=== PATIENT | female | born 1960 | race Caucasian/White ===

== ENCOUNTER 2022-03-31 11:55 | Observation (INO) | payer OTHER ==
[~2022-03-31] VITALS: Ht 172.7 cm; Wt 100.0 kg
[2022-03-31] MEDS ORDERED: WELLBUTRIN100 M2 PO (12:09)
--- NOTE | 2022-03-31 12:10 | NUR ---
PATIENT AMBULATED TO ROOM WITH STEADY GAIT AND PHYSICIAN NOTIFIED OF STATUS
[2022-03-31 12:33] LABS: BASO% 0.6 % (0-3); EOS% 1.5 % (0-8); HEMATOCRIT 40.4 % (37.0-47.0); HEMOGLOBIN 12.6 g/dl (12.0-16.0); IMMATURE GRANULOCYTES 0.2 % (0.0-5.0); LYMPH% 23.8 % (15-41); MEAN CORPUSCULAR HGB 27.8 pG CALC (26.0-32.0); MEAN CORPUSCULAR HGB CONC 31.2 g/dL CAL (32.0-36.0); MONO% 10.2 % (2-13); NEUT# 3.93 thou/uL (2.00-7.15); NEUT% 63.7 % (42-76); RED BLOOD COUNT 4.54 mill/uL (4.20-5.60); RED CELL DISTRI WIDTH 13.7 % (11.5-15.5)
[2022-03-31 12:51] LABS: ALBUMIN 4.4 g/dL (3.2-5.0); ALKALINE PHOSPHATASE 57 u/l (38-126); ANION GAP 8 (6-22 (CALC)); BILIRUBIN, TOTAL 0.3 mg/dL (0.02-1.3); BUN 13 mg/dL (8-23); BUN/CREATININE RATIO 16 (12-20 (CALC)); CARBON DIOXIDE 30 mmol/l (22-30); CHLORIDE 104 mmol/l (95-108); CREATININE 0.8 mg/dL (0.5-1.0); GFR FOR AFR.AMER. > 60 ML/MIN (>=60 (CALC)); GFR OTHER RACES > 60 ML/MIN (>=60 (CALC)); POTASSIUM 4.2 mmol/l (3.5-5.1); SGOT/AST 25 u/l (9-36); SODIUM 138 mmol/l (137-146); TOTAL PROTEIN 7.4 g/dL (6.3-8.2)
--- NOTE | 2022-03-31 15:42 | NUR ---
RECEIVE PATIENT FROM ER. REPORT FROM [facility] ER NURSE. PATIENT ALERT AND ORENTED X3. ASSESSMENT HEAD-TO TOE COMPLETE. PT STABLE AT THIS TIME. SHE DOES NOT REFER TO PAIN OR STRESS IS OBSERVED AT THE TIME OF THIS NOTE. PATIENT IS EDUCATED ABOUT ADMISSION, MEDICATIONS AND NURSING PLAN. PATIENT REFERS TO UNDERSTAND. SAFETY AND FALL PRECAUTIONS IN PLACE. CALL LIGHT WITHIN REACH.
[2022-03-31 15:49] VITALS: BP 138/75
[2022-03-31] MEDS ORDERED: BUPROPION100 MG PO (16:09)
[2022-03-31 18:54] VITALS: BP 124/65
--- NOTE | 2022-03-31 19:25 | NUR ---
RECEIVED REPORT FROM [facility] NURSE. PT NOTED SITTING UP IN CHAIR. A/OX3. TELE MONITOR IN PLACE. PT DENIES ANY CHEST PAIN AT THIS TIME. CALL LIGHT WITHIN REACH AND SAFETY PRECAUTIONS IN PLACE.
--- NOTE | 2022-04-01 00:10 | NUR ---
PT LAYING IN BED SUPINE SLEEPING. TELE MONITOR IN PLACE. NO S/S OF DISTRESS. CALL LIGHT WITHIN REACH AND SAFETY PRECAUTIONS IN PLACE.
[2022-04-01 00:17] VITALS: BP 102/47
--- NOTE | 2022-04-01 04:00 | NUR ---
PT LAYING IN BED, AUTO DAMAGE ESTIMATOR GETTING VITALS AT THIS TIME. PT DENIES ANY PAIN. TELE MONITOR IN PLACE. CALL LIGHT WITHIN REACH AND SAFETY PRECAUTIONS INPLACE.
[2022-04-01 04:11] VITALS: BP 113/51
[2022-04-01 05:55] LABS: BASO% 0.8 % (0-3); EOS% 2.4 % (0-8); HEMATOCRIT 38.9 % (37.0-47.0); HEMOGLOBIN 11.9 g/dl (12.0-16.0); IMMATURE GRANULOCYTES 0.6 % (0.0-5.0); LYMPH% 33.6 % (15-41); MEAN CELL VOLUME 89.2 fL CALC (80.0-100.0); MEAN CORPUSCULAR HGB 27.3 pG CALC (26.0-32.0); MEAN CORPUSCULAR HGB CONC 30.6 g/dL CAL (32.0-36.0); MONO% 11.1 % (2-13); NEUT# 2.74 thou/uL (2.00-7.15); NEUT% 51.5 % (42-76); RED BLOOD COUNT 4.36 mill/uL (4.20-5.60); RED CELL DISTRI WIDTH 13.7 % (11.5-15.5)
[2022-04-01 06:10] LABS: ALBUMIN 3.9 g/dL (3.2-5.0); ALKALINE PHOSPHATASE 51 u/l (38-126); ANION GAP 7 (6-22 (CALC)); BILIRUBIN, TOTAL 0.3 mg/dL (0.02-1.3); BUN 12 mg/dL (8-23); BUN/CREATININE RATIO 17 (12-20 (CALC)); CARBON DIOXIDE 31 mmol/l (22-30); CHLORIDE 106 mmol/l (95-108); CREATININE 0.7 mg/dL (0.5-1.0); GFR FOR AFR.AMER. > 60 ML/MIN (>=60 (CALC)); GFR OTHER RACES > 60 ML/MIN (>=60 (CALC)); POTASSIUM 4.2 mmol/l (3.5-5.1); SGOT/AST 21 u/l (9-36); SODIUM 140 mmol/l (137-146); TOTAL PROTEIN 6.3 g/dL (6.3-8.2)
[2022-04-01 06:55] VITALS: BP 121/56
[2022-04-01 07:03] VITALS: BP 121/56
--- NOTE | 2022-04-01 07:23 | NUR ---
RECEIVE REPORT FROM ALEKSANDER TONY.
--- NOTE | 2022-04-01 08:00 | NUR ---
Alert and oriented patient x3. No distress is observed at the time of this note. complete head-to-toe assessment. Patient no report any chest pain or disconfort at this time. Patient is educated and oriented on medications and nursing plan for today. Patient refers to understanding. Safety and fall precautions in place. Call light within reach.
[2022-04-01] MEDS ORDERED: PANTOPRAZOLE SO40 M1 PO (09:32)
--- NOTE | 2022-04-01 10:06 | NUR ---
Discharge instructions given. Patient verbalizes understanding of same. Discharged in stable condition via Wheelchair to Home with staff. All belongings sent with pt.
== END 2022-04-01 10:07 | disposition home or self-care (01) | DRG 313 ==
LOC: ED 11:55 → ED-I 14:25 → ED 15:12 → MS2 15:13
PROVIDERS: Family Medicine; Nurse Practitioner Family; ADMIT Internal Medicine; ATTEND Internal Medicine
DX: R07.2 Precordial pain (principal); F41.9 Anxiety disorder, unspecified
CPT/HCPCS: G0378; J1650

== ENCOUNTER 2022-05-12 06:44 | Day surgery (SDC) | payer OTHER ==
[~2022-05-12] VITALS: Ht 172.7 cm; Wt 97.1 kg
[~2022-05-12 06:44] MED LIST: BUPROPION100 MG PO; CBD GUMMY; CYCLOBENZAPRINE10 MG PO; MULTIVITAMIN1 TA1 PO; PANTOPRAZOLE SO40 M1 PO; VITAMIN C500 M4 PO; VITAMIN D5000 UNI1 PO; WELLBUTRIN100 M2 PO
[2022-05-12 09:05] VITALS: BP 131/81
== END 2022-05-12 08:55 | disposition home or self-care (01) | DRG 951 ==
LOC: ENDO 06:44
PROVIDERS: ATTEND Internal Medicine Gastroenterology
PROC: 0DJD8ZZ Inspection of Lower Intestinal Tract, Via Natural or Artificial Opening Endoscopic (ICD-10-PCS; principal; 2022-05-12)
DX: Z12.11 Encounter for screening for malignant neoplasm of colon (principal); K57.30 Diverticulosis of large intestine without perforation or abscess without bleeding; K64.8 Other hemorrhoids

== ENCOUNTER 2022-07-03 11:00 | Emergency (ER) | payer OTHER ==
[~2022-07-03] VITALS: Ht 172.7 cm; Wt 103.0 kg
[2022-07-03] MEDS ORDERED: KEFLEX500 MG PO (13:06)
[2022-07-03 13:12] VITALS: BP 125/69
== END 2022-07-03 13:36 | disposition home or self-care (01) | DRG 605 ==
LOC: ED 11:00
PROC: 0HQNXZZ Repair Left Foot Skin, External Approach (ICD-10-PCS; principal; 2022-07-03)
DX: S91.115A Laceration without foreign body of left lesser toe(s) without damage to nail, initial encounter (principal); W26.9XXA Contact with unspecified sharp object(s), initial encounter; Y92.009 Unspecified place in unspecified non-institutional (private) residence as the place of occurrence of the external cause

== ENCOUNTER 2023-03-14 15:27 | Emergency (ER) | payer OTHER ==
[~2023-03-14] VITALS: Ht 172.7 cm; Wt 107.0 kg
[2023-03-14] VITALS (7 sets, daily range): BP systolic 116–138; BP diastolic 64–79
[~2023-03-14 15:27] MED LIST changes: +KEFLEX500 MG PO
[2023-03-14 17:22] LABS: BASO% 0.4 % (0-3); HEMATOCRIT 42.6 % (37.0-47.0); HEMOGLOBIN 13.5 g/dl (12.0-16.0); IMMATURE GRANULOCYTES 0.4 % (0.0-5.0); LYMPH% 25.5 % (15-41); MEAN CELL VOLUME 88.8 fL CALC (80.0-100.0); MEAN CORPUSCULAR HGB 28.1 pG CALC (26.0-32.0); MEAN CORPUSCULAR HGB CONC 31.7 g/dL CAL (32.0-36.0); MONO% 8.9 % (2-13); NEUT# 5.67 thou/uL (2.00-7.15); NEUT% 63.8 % (42-76); RED BLOOD COUNT 4.8 mill/uL (4.20-5.60)
[2023-03-14 17:38] LABS: ALBUMIN 4.3 g/dL (3.2-5.0); ALKALINE PHOSPHATASE 66 u/l (38-126); ANION GAP 10 (6-22 (CALC)); BILIRUBIN, TOTAL 0.3 mg/dL (0.02-1.3); BUN 18 mg/dL (8-23); BUN/CREATININE RATIO 20 (12-20 (CALC)); CARBON DIOXIDE 27 mmol/l (22-30); CHLORIDE 108 mmol/l (95-108); CREATININE 0.9 mg/dL (0.5-1.0); GFR FOR AFR.AMER. > 60 ML/MIN (>=60 (CALC)); GFR OTHER RACES > 60 ML/MIN (>=60 (CALC)); LIPASE 86 u/l (23-300); SGOT/AST 24 u/l (9-36); SODIUM 141 mmol/l (137-146); TOTAL PROTEIN 7.1 g/dL (6.3-8.2)
[2023-03-14 18:50] LABS: URINE BILIRUBIN - DIPSTICK Negative (NEGATIVE); URINE BLOOD DIPSTICK Small (NEGATIVE); URINE GLUCOSE - DIPSTICK Negative (NEGATIVE); URINE KETONE Negative (NEGATIVE); URINE LEUK ESTERASE Negative (NEGATIVE); URINE NITRITE - DIPSTICK Negative (Negative); URINE PH 5.5 (4.5-8.0); URINE PROTEIN - DIPSTICK Negative (NEG-TRACE); URINE SPECIFIC GRAVITY <=1.005; URINE UROBILINOGEN - DIPSTICK 0.2 E.U./dL (0.2)
[2023-03-14 18:51] LABS: URINE COLOR Yellow
[2023-03-14 18:57] LABS: URINE RBC 0-2 RBC/hpf (0-5)
== END 2023-03-14 19:21 | disposition home or self-care (01) | DRG 153 ==
LOC: ED 15:27
PROVIDERS: Family Medicine
DX: J06.9 Acute upper respiratory infection, unspecified (principal); Z20.822 Contact with and (suspected) exposure to COVID-19

== ENCOUNTER 2024-03-03 21:19 | Emergency (ER) | payer MEDICARE ==
[~2024-03-03] VITALS: Ht 172.7 cm; Wt 89.0 kg
[2024-03-03] VITALS (10 sets, daily range): BP systolic 96–130; BP diastolic 51–67
[~2024-03-03 21:19] MED LIST changes: +ELIQUIS5 MG PO; +TOPROL XL50 MG PO
[2024-03-03 21:52] LABS: BASO% 0.5 % (0-3); EOS% 1.6 % (0-8); HEMATOCRIT 41.8 % (37.0-47.0); IMMATURE GRANULOCYTES 0.1 % (0.0-5.0); LYMPH% 35.3 % (15-41); MEAN CELL VOLUME 90.9 fL CALC (80.0-100.0); MEAN CORPUSCULAR HGB 28.3 pG CALC (26.0-32.0); MEAN CORPUSCULAR HGB CONC 31.1 g/dL CAL (32.0-36.0); MONO% 9.8 % (2-13); NEUT# 3.93 thou/uL (2.00-7.15); NEUT% 52.7 % (42-76); RED BLOOD COUNT 4.6 mill/uL (4.20-5.60); RED CELL DISTRI WIDTH 13.7 % (11.5-15.5)
[2024-03-03 22:08] LABS: ALKALINE PHOSPHATASE 56 u/l (38-126); ANION GAP 9 (6-22 (CALC)); BILIRUBIN, TOTAL 0.4 mg/dL (0.02-1.3); BUN 19 mg/dL (8-23); BUN/CREATININE RATIO 22 (12-20 (CALC)); CARBON DIOXIDE 30 mmol/l (22-30); CHLORIDE 106 mmol/l (95-108); CREATININE 0.9 mg/dL (0.5-1.0); ESTIMATED GFR 71 ML/MIN (>=90 (CALC)); POTASSIUM 4.1 mmol/l (3.5-5.1); SGOT/AST 30 u/l (9-36); SODIUM 140 mmol/l (137-146); TOTAL PROTEIN 7.4 g/dL (6.3-8.2)
[2024-03-03 22:09] LABS: ALBUMIN 4.2 g/dL (3.2-5.0)
[2024-03-03 22:24] LABS: ACT PARTIAL THROMBO TIME 28.9 SECONDS (20.0-32.5); D-DIMER 0.35 mg/L (0.19-0.60); PROTHROMBIN TIME 10.7 SECONDS (9.0-12.5)
[2024-03-03 22:58] LABS: URINE BILIRUBIN - DIPSTICK Negative (NEGATIVE); URINE BLOOD DIPSTICK Small (NEGATIVE); URINE CLARITY Clear; URINE GLUCOSE - DIPSTICK Negative (NEGATIVE); URINE KETONE Trace mg/dL (NEGATIVE); URINE LEUK ESTERASE Trace (Negative); URINE NITRITE - DIPSTICK Negative (Negative); URINE PH 5.5 (4.5-8.0); URINE PROTEIN - DIPSTICK Negative (NEG-TRACE); URINE SPECIFIC GRAVITY 1.025; URINE UROBILINOGEN - DIPSTICK 0.2 E.U./dL (0.2)
[2024-03-03 22:59] LABS: URINE COLOR Yellow
[2024-03-03 23:07] LABS: URINE MUCUS FEW hpf (NONE-FEW); URINE SQUAMOUS EPITHELIAL CELL FEW EPI/hpf (0-FEW); URINE WBC 0-2 WBC/hpf (0-5)
[2024-03-04] VITALS: BP 104/54
== END 2024-03-04 | disposition home or self-care (01) ==
LOC: ED 21:19
PROVIDERS: Emergency Medicine
DX: G44.40 Drug-induced headache, not elsewhere classified, not intractable (principal); R20.2 Paresthesia of skin; R52 Pain, unspecified; T44.7X5A Adverse effect of beta-adrenoreceptor antagonists, initial encounter; T45.515A Adverse effect of anticoagulants, initial encounter; I48.91 Unspecified atrial fibrillation; Z79.01 Long term (current) use of anticoagulants